=== PATIENT | male | born 1960 | race African-American/Black ===

== ENCOUNTER 2016-07-31 14:39 | Day surgery (SDC) | payer OTHER ==
[2016-07-30 13:39] VITALS: BMI 23.5
[2016-07-31 16:18] LABS: INR 0.95 (0.82-1.09); PROTHROMBIN TIME (PATIENT) 10.4 SEC (9.98-11.88)
--- NOTE | 2016-08-01 11:40 | EKG ---
Test Reason : Blood Pressure : / mmHG Vent. Rate : 072 BPM Atrial Rate : 072 BPM P-R Int : 214 ms QRS Dur : 092 ms QT Int : 406 ms P-R-T Axes : 078 006 096 degrees QTc Int : 444 ms POOR DATA QUALITY, INTERPRETATION MAY BE ADVERSELY AFFECTED SINUS RHYTHM WITH 1ST DEGREE A-V BLOCK VOLTAGE CRITERIA FOR LEFT VENTRICULAR HYPERTROPHY CANNOT RULE OUT SEPTAL INFARCT , AGE UNDETERMINED ABNORMAL ECG NO PREVIOUS ECGS AVAILABLE Confirmed by BEKA KELLY MD ([id number]) on 08/01/2016 11:39:35 AM Referred By: Santosh Singh Confirmed By:BEKA KELLY MD
== END 2016-07-31 16:14 ==
LOC: JASU-SURG 14:39
PROVIDERS: ATTEND Surgery
PROC: 8E0KXY7 Examination of Musculoskeletal System (ICD-10-PCS; principal; 2016-07-31)
DX: Z53.8 Procedure and treatment not carried out for other reasons (principal)
CPT/HCPCS: 36415; 84132; 85610; 85730; 93005; 93010; J1644

== ENCOUNTER 2016-08-05 11:25 | Day surgery (SDC) | payer OTHER ==
[2016-08-02 13:22] VITALS: BMI 23.5
[2016-08-05] MEDS ORDERED: HEPARIN NA (PORCINE) 5,000 UNITS/ML 1ML VIAL ONE ×3 (13:41→17:28)
[2016-08-05] MEDS ORDERED: LIDOCAINE HCL 1%, 10 MG/ML (20ML VIAL) ONE (13:42)
--- NOTE | 2016-08-05 14:23 | HP ---
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 History Source: Family Member, Medical Record Limitations to Obtaining History: Dementia - Past Medical History RECORDS SUPERVISOR: Yes: CVA Cardiovascular: Yes: HTN Pulmonary: Yes: COPD Renal/: Yes: Renal Failure - Past Surgical History Past Surgical History: Yes: AV Fistula/Graft - Advance Directives Advance Directives: Yes: Health Care Proxy - Smoking History Smoking history: Never smoked - Alcohol/Substance Use Hx Alcohol Use: No Home Medications - Allergies Allergies/Adverse Reactions: Allergies Allergy/AdvReac Type Severity Reaction Status Date / Time codeine Allergy Verified 08/05/16 12:16 - Home Medications Home Medications: Ambulatory Orders Acetaminophen 325 mg PO PRN PRN 07/30/16 Albuterol 0.083% Nebulizer Bertha [Ventolin 0.083% Nebulizer Soln -] 1 neb NEB Q6H PRN 07/30/16 Brimonidine Tartrate/Timolol [Combigan Eye Drops] 5 ml AU BID 07/30/16 Enalapril Maleate 5 mg PO DAILY 07/30/16 Magnesium Hydroxide [Milk of Magnesia] 400 mg PO PRN PRN 07/30/16 Pantoprazole Sodium 40 mg PO DAILY 07/30/16 Sevelamer Carbonate [Renvela] 1,600 mg PO CM 07/30/16 Amlodipine Besylate 10 mg PO DAILY 07/31/16 Docusate Sodium 100 mg PO BID 07/31/16 Dorzolamide HCl [Trusopt 2%] 1 drop OD BID 07/31/16 Ferrous Sulfate [Feosol] 325 mg PO DAILY 07/31/16 Isosorbide Dinitrate [Isordil -] 10 mg PO DAILY 07/31/16 Latanoprost 0.005% Eye Drops [Xalatan 0.005% Eye Drops -] 1 drop OD DAILY Metoprolol Tartrate 50 mg PO BID 07/31/16 Pantoprazole Sodium 40 mg PO DAILY 07/31/16 Sodium Chloride [Tom-128] 2 drop OS Q6H 07/31/16 Physical Examination Vital Signs: Vital Signs Temperature 97.8 F 08/05/16 12:22 Pulse Rate 69 08/05/16 12:22 Respiratory Rate 18 08/05/16 12:22 Blood Pressure 158/93 03/20/17 12:22 O2 Sat by Pulse Oximetry (%) 100 08/05/16 12:22 Constitutional: Yes: Calm Eyes: Yes: EOM Intact Neck: Yes: Supple Cardiovascular: Yes: Regular Rate and Rhythm Respiratory: Yes: Regular Gastrointestinal: Yes: Normal Bowel Sounds, Soft Extremities: Yes: Other (Left upper arm fistula with 2 aneurysms 3-4 cm. Skin over fistula is thin and beginning to ulcerate.) Labs: CBC, BMP 08/05/16 11:35 Problem List - Problems (1) Complication of vascular access for dialysis Assessment/Plan: Aneurysmal fistula with skin changes. Plan interposition graft. Code(s): T82.9XXA - UNSP COMP OF CARDIAC AND VASCULAR PROSTH DEV/GRFT, INIT Qualifiers: Encounter type: subsequent encounter Qualified Code(s): T82.9XXD - Unspecified complication of cardiac and vascular prosthetic device, implant and graft, subsequent encounter
[2016-08-05] MEDS ORDERED: MIDAZOLAM HCL 2 MG/2 ML SINGLE DOSE VIAL ONE ×3 (14:24→17:25)
[2016-08-05] MEDS ORDERED: ceFAZolin SODIUM 1 GM VIAL ONE (14:34)
[2016-08-05] MEDS ORDERED: SODIUM CHLORIDE 0.9% P/F 10 ML VIAL IJ ONE (14:34)
[2016-08-05] MEDS ORDERED: hydrALAZINE HCL 20 MG/ML VIAL ONE (14:40)
[2016-08-05] MEDS ORDERED: LIDOCAINE HCL 1%, 10 MG/ML (20ML VIAL) IJ ONE ×2 (14:52)
[2016-08-05] MEDS ORDERED: ONDANSETRON 4 MG/2 ML VIAL IVPUSH PRN ×2 (16:16→19:25)
[2016-08-05] MEDS ORDERED: PROMETHAZINE HCL 25 MG/1 ML VIAL IVPUSH PRN ×2 (16:16→19:25)
[2016-08-05] MEDS ORDERED: LACTATED RINGERS SOLUTION 1,000 ML IV SCH ×2 (16:30→19:25)
[2016-08-05] MEDS ORDERED: ALBUTEROL SO4 0.083% IH SOL 2.5 MG/3 ML VIAL.NEB. NEB PRN ×2 (18:31→19:25)
[2016-08-05] MEDS ORDERED: PATIENT'S OWN MEDICATION (NON-FORMULARY) (Acetaminophen [Acetaminophen] 325 MG) PO PRN (18:31)
[2016-08-05] MEDS ORDERED: MAGNESIUM HYDROX 2400MG/30ML ORAL SUSPENSION 30 ML CUP PO PRN ×2 (18:31→19:25)
--- NOTE | 2016-08-05 18:33 | OP ---
Operative Note - Note: Operative Date: 08/05/16 Pre-Operative Diagnosis: Aneurysm of AV fistula left arm. ESRD on HD Operation: Repair of left brachial artery aneurysm with patch angioplasty, ligation of AV fistula. Placement Permacath. Findings: Left brachial artery fistula with inflow PTFE graft. Post-Operative Diagnosis: Other (Brachial artery aneurysm.) Surgeon: Santosh Singh Ply Cutter: Ivelisse Palafox Anesthesiologist/HAND MODEL: Gabriel Hanna Anesthesia: Fractional Specimens Removed: Aneurysm brachial artery Estimated Blood Loss (mls): 600
[2016-08-05] MEDS ORDERED: [UNRECOGNIZED DRUG - OTHER] OS SCH (18:45)
[2016-08-05] MEDS ORDERED: SEVELAMER CARBONATE 800 MG TAB (FP) PO SCH ×2 (18:45→19:25)
[2016-08-05] MEDS ORDERED: SODIUM CHLORIDE OS SCH (18:45)
--- NOTE | 2016-08-05 18:53 | CONSULT ---
Consult Consult Specialty:: Nephrology Reason for Consultation:: ESRD on HD - History of Present Illness Chief Complaint: fistula malfunction History of Present Illness: Pt is a 56 year old male with Hx of ESRD, HTN and schizophrenia who was sent in for fistula repair. He had a permacath placed. He is on TTS HD schedule. He was found to be hyperkalemic. He is now awake. He denies shortness of breath. He denies palpitations. He is currently in the recovery room. - History Source History Provided By: Patient, Medical Record - Past Medical History COMMUNITY HEALTH NAVIGATOR: Yes: CVA Cardio/Vascular: Yes: HTN Pulmonary: Yes: COPD Gastrointestinal: Yes: GERD Renal/: Yes: Renal Failure, Hemodialysis - Past Surgical History Past Surgical History: Yes: AV Fistula/Graft - Alcohol/Substance Use Hx Alcohol Use: No - Smoking History Smoking history: Never smoked Home Medications - Allergies Allergies/Adverse Reactions: Allergies Allergy/AdvReac Type Severity Reaction Status Date / Time codeine Allergy Verified 08/05/16 12:16 - Home Medications Home Medications: Ambulatory Orders Acetaminophen 325 mg PO PRN PRN 07/30/16 Albuterol 0.083% Nebulizer Bertha [Ventolin 0.083% Nebulizer Soln -] 1 neb NEB Q6H PRN 07/30/16 Brimonidine Tartrate/Timolol [Combigan Eye Drops] 5 ml AU BID 07/30/16 Enalapril Maleate 5 mg PO DAILY 07/30/16 Magnesium Hydroxide [Milk of Magnesia] 400 mg PO PRN PRN 07/30/16 Pantoprazole Sodium 40 mg PO DAILY 07/30/16 Sevelamer Carbonate [Renvela] 1,600 mg PO CM 07/30/16 Amlodipine Besylate 10 mg PO DAILY 07/31/16 Docusate Sodium 100 mg PO BID 07/31/16 Dorzolamide HCl [Trusopt 2%] 1 drop OD BID 07/31/16 Ferrous Sulfate [Feosol] 325 mg PO DAILY 07/31/16 Isosorbide Dinitrate [Isordil -] 10 mg PO DAILY 07/31/16 Latanoprost 0.005% Eye Drops [Xalatan 0.005% Eye Drops -] 1 drop OD DAILY Metoprolol Tartrate 50 mg PO BID 07/31/16 Pantoprazole Sodium 40 mg PO DAILY 07/31/16 Sodium Chloride [Tom-128] 2 drop OS Q6H 07/31/16 Family Disease History - Family Disease History Family History: Denies Review of Systems - Review of Systems Constitutional: reports: No Symptoms HENT: reports: No Symptoms Neck: reports: No Symptoms Cardiovascular: reports: No Symptoms Respiratory: reports: No Symptoms Gastrointestinal: reports: No Symptoms Genitourinary: reports: No Symptoms Musculoskeletal: reports: No Symptoms Integumentary: reports: No Symptoms Neurological: reports: No Symptoms Physical Exam Vital Signs: Vital Signs Temperature 97.8 F 08/05/16 12:22 Pulse Rate 69 08/05/16 12:22 Respiratory Rate 18 08/05/16 12:22 Blood Pressure 158/93 08/05/16 12:22 O2 Sat by Pulse Oximetry (%) 100 08/05/16 12:22 Constitutional: Yes: Calm HENT: Yes: Atraumatic Cardiovascular: Yes: S1, S2 Respiratory: Yes: CTA Bilaterally Gastrointestinal: Yes: Normal Bowel Sounds, Soft Renal/: Yes: WNL Musculoskeletal: Yes: WNL Edema: No Neurological: Yes: Oriented Labs: Laboratory Tests 07/31/16 08/05/16 08/05/16 15:40 11:35 13:04 WBC RBC Hgb Hct Sodium Potassium 6.0 H 6.3 H* Chloride Carbon Dioxide Anion Gap BUN Creatinine POC Glucometer 52 Random Glucose Calcium 08/05/16 08/05/16 17:49 17:49 WBC Pending RBC Pending Hgb Pending Hct Pending Sodium Pending Potassium Pending Chloride Pending Carbon Dioxide Pending Anion Gap Pending BUN Pending Creatinine Pending POC Glucometer Random Glucose Pending Calcium Pending Imaging - Results Chest X-ray: Image Reviewed Problem List - Problems (1) Complication of vascular access for dialysis Code(s): T82.9XXA - UNSP COMP OF CARDIAC AND VASCULAR PROSTH DEV/GRFT, INIT Qualifiers: Encounter type: subsequent encounter Qualified Code(s): T82.9XXD - Unspecified complication of cardiac and vascular prosthetic device, implant and graft, subsequent encounter (2) ESRD (end stage renal disease) Code(s): N18.6 - END STAGE RENAL DISEASE (3) Hypertension Code(s): I10 - ESSENTIAL (PRIMARY) HYPERTENSION (4) Brain metastases Code(s): C79.31 - SECONDARY MALIGNANT NEOPLASM OF BRAIN Assessment/Plan Current Medications Generic Name Dose Route Start Last Admin Trade Name Freq PRN Reason Stop Dose Admin Albuterol Sulfate amp 08/05/16 18:31 Ventolin 0.083% Nebulizer Soln - NEB Q6H PRN SHORTNESS OF BREATH Amlodipine Besylate 10 mg 08/06/16 10:00 Norvasc - PO DAILY [facility] Docusate Sodium 100 mg 08/05/16 22:00 Colace - PO BID [facility] Dorzolamide HCl 1 drop 08/05/16 22:00 Trusopt 2% OD BID [facility] Enalapril Maleate 5 mg 08/06/16 10:00 Vasotec - PO DAILY [facility] Fentanyl 50 mcg 08/05/16 16:16 Sublimaze Injection - IVPUSH 08/08/16 16:17 [id number] PRN PAIN Lactated Ringer's 1,000 mls @ 125 mls/hr 08/05/16 16:30 Lactated Ringers Solution IV ASDIR [facility] Isosorbide Dinitrate 10 mg 08/06/16 10:00 Isordil - PO DAILY [facility] Latanoprost 1 drop 08/06/16 10:00 Xalatan 0.005% Eye Drops - OD DAILY [facility] Magnesium Hydroxide ml 08/05/16 18:31 Milk Of Magnesia - PO PRN PRN CONSTIPATION Metoprolol Tartrate 50 mg 08/05/16 22:00 Lopressor - PO BID [facility] Non-Formulary Medication 325 mg 08/05/16 18:31 Acetaminophen [Acetaminophen] PO PRN PRN PAIN Non-Formulary Medication 5 ml 08/05/16 22:00 Brimonidine Tartrate/Timolol [Combigan 0.2%-0.5% Eye Drops] AU BID [facility] Non-Formulary Medication 325 mg 08/06/16 10:00 Ferrous Sulfate [Feosol] PO DAILY [facility] Non-Formulary Medication 2 drop 08/05/16 18:45 Sodium Chloride [Tom-128] OS Q6H [facility] Ondansetron HCl 4 mg 08/05/16 16:16 Zofran Injection IVPUSH 08/05/16 22:17 Q6H PRN NAUSEA AND/OR VOMITING Pantoprazole Sodium 40 mg 08/06/16 10:00 Protonix - PO DAILY [facility] Promethazine HCl 12.5 mg 08/05/16 16:16 Phenergan Injection - IVPUSH 08/05/16 22:17 Q6H PRN [facility] Sevelamer Carbonate 1,600 mg 08/05/16 18:45 Renvela - PO CM [facility] Impression 1. ESRD 2. access malfunction 3. HTN 4. brain metastases 5. schizophrenia 6. anemia 7. hyperkalemia Plan - follow up repeat labs - will arrange for HD today - repeat labs in am - will likely dialyze again in am - monitor hg - resume home meds Dr Feng
[2016-08-05] MEDS ORDERED: EPOETIN ALFA 2,000 UNITS/1 ML VIAL IVPUSH ONE (18:55)
[2016-08-05] MEDS ORDERED: ACETAMINOPHEN 325 MG TABLET (FP) PO PRN (19:25)
[2016-08-05 19:38] LABS: CALCIUM 8.7 mg/dL (8.5-10.1)
[2016-08-05 19:42] LABS: CREATININE 11.9 mg/dL (0.7-1.3)
[2016-08-05 20:08] LABS: MCH 28.8 pg (25.7-33.7); MCHC 32.1 g/dl (32.0-35.9); MEAN CELL VOLUME 89.6 fl (80-96); MEAN PLT VOLUME 8.2 fl (7.5-11.1); PLATELET COUNT 176 K/MM3 (134-434); RDW 13.6 % (11.9-15.9); WHITE BLOOD COUNT 5.6 K/mm3 (4.0-10.0)
[2016-08-05] MEDS ORDERED: HYDROmorphone HCL CARPU-JECT 1 MG/1 ML DISP.SYRIN IVPB PRN (21:30)
[2016-08-05] MEDS ORDERED: DOCUSATE SODIUM 100 MG CAPSULE (FP) PO SCH (22:00)
[2016-08-05] MEDS ORDERED: DORZOLAMIDE 2% HCL OPHTHALMIC SOLUTION 10 ML BOTTLE OD SCH ×2 (22:00)
[2016-08-05] MEDS: DOCUSATE SODIUM 100 MG CAPSULE (FP) PO SCH (22:00)
[2016-08-05] MEDS ORDERED: METOPROLOL TARTRATE 50 MG TABLET (FP) PO SCH (22:00)
[2016-08-05] MEDS: METOPROLOL TARTRATE 50 MG TABLET (FP) PO SCH (22:00)
[2016-08-05] MEDS ORDERED: PATIENT'S OWN MEDICATION (NON-FORMULARY) (Brimonidine Tartrate/Timolol [Combigan 0.2%-0.5% AU SCH ×2 (22:00)
[2016-08-06] MEDS ORDERED: [UNRECOGNIZED DRUG - OTHER] OS SCH (00:45)
[2016-08-06] MEDS ORDERED: SODIUM CHLORIDE OS SCH (00:45)
[2016-08-06 07:47] LABS: CALCIUM 8.8 mg/dL (8.5-10.1)
--- NOTE | 2016-08-06 08:03 | PN ---
Progress Note, Physician Chief Complaint: Pt. pain controlled, no GA complaints. - Current Medication List Current Medications: Active Medications Acetaminophen (Tylenol -) 325 mg PO Q6H PRN PRN Reason: PAIN Albuterol Sulfate (Ventolin 0.083% Nebulizer Soln -) 1 amp NEB Q6H PRN PRN Reason: SHORTNESS OF BREATH Amlodipine Besylate (Norvasc -) 10 mg PO DAILY [facility] Docusate Sodium (Colace -) 100 mg PO BID [facility] Last Admin: 08/05/16 22:00 Dose: Not Given Dorzolamide HCl (Trusopt 2%) 1 drop OD BID [facility] Enalapril Maleate (Vasotec -) 5 mg PO DAILY [facility] Ferrous Sulfate (Feosol -) 325 mg PO DAILY [facility] Hydromorphone HCl (Dilaudid Injection -) 0.5 mg IVPB Q4H PRN PRN Reason: PAIN Lactated Ringer's (Lactated Ringers Solution) 1,000 mls @ 125 mls/hr IV ASDIR [facility] Isosorbide Dinitrate (Isordil -) 10 mg PO DAILY [facility] Latanoprost (Xalatan 0.005% Eye Drops -) 1 drop OD DAILY [facility] Magnesium Hydroxide (Milk Of Magnesia -) 30 ml PO DAILY PRN PRN Reason: CONSTIPATION Metoprolol Tartrate (Lopressor -) 50 mg PO BID [facility] Last Admin: 08/05/16 22:00 Dose: Not Given Non-Formulary Medication (Brimonidine Tartrate/Timolol [Combigan 0.2%-0.5% Eye Drops]) 5 ml AU BID [facility] Non-Formulary Medication (Sodium Chloride [Tom-128]) 2 drop OS Q6H [facility] Pantoprazole Sodium (Protonix -) 40 mg PO DAILY [facility] Sevelamer Carbonate (Renvela -) 1,600 mg PO [facility] - Objective Vital Signs: Vital Signs Temperature 98 F 08/06/16 05:36 Pulse Rate 84 08/06/16 05:36 Respiratory Rate 18 08/06/16 05:36 Blood Pressure 128/77 08/06/16 05:36 O2 Sat by Pulse Oximetry (%) 99 08/05/16 20:45 Constitutional: Yes: Well Nourished, No Distress, Calm Musculoskeletal: Yes: WNL Wound/Incision: Yes: Clean/Dry Neurological: Yes: WNL, Alert, Oriented ...Motor Strength: WNL Labs: CBC, BMP 08/05/16 17:49 Assessment/Plan POD#1 s/p AV fistula, repair of brachial artery and placement of permacath. Doing well. D/C from anesthesia care.
--- NOTE | 2016-08-06 08:57 | PN ---
[id number] via his left permacath today. Vital Signs Period Temp Pulse Resp BP Sys/[place] Pulse Ox Last 24 Hr 97.2 F-98 F 62-87 10-18 97-158/51-99 94-100 POC:101 PE: GEN: RRR Lungs: CTA b/l Abd: soft, on-distended, non-tender LUE: +2 radial pulse. mobile application architect strength equal b/l. Dressing to mid arm and permcath c/d/i LE: scd in place. CBC, BMP 08/05/16 17:49 08/06/16 05:35 A/P: s/p Repair of left brachial artery aneurysm with patch angioplasty, ligation of AV fistula. Placement Permacath Awaiting call from Nephrology, pt may have another HD session prior to discharge back to nursing facility. diet ordered for this am cont all oral medications <Ivelisse Palafox - Last Filed: 08/06/16 09:07> - Note Progress Note: Wounds clean and dry Left hand warm Pulse intact Permacath tip in RA but due to anatomy arterial port does not aspirate blood. It flows easily and venogram showed no obstruction. Plan to use permacath with reversed ports for now. I will schedule for new AV access in right arm as soon as possible. <Santosh Singh - Last Filed: 08/06/16 09:13> Problem List - Problems (1) Complication of vascular access for dialysis Code(s): T82.9XXA - UNSP COMP OF CARDIAC AND VASCULAR PROSTH DEV/GRFT, INIT Qualifiers: Encounter type: subsequent encounter Qualified Code(s): T82.9XXD - Unspecified complication of cardiac and vascular prosthetic device, implant and graft, subsequent encounter <Santosh Singh - Last Filed: 08/06/16 09:13>
--- NOTE | 2016-08-06 08:57 | SURG ---
Surgery Offset Pressman Note Offset Pressman: Ivelisse Palafox PA-C Date of Service: 08/05/16 Diagnosis: Aneurysm of AV fistula left arm. ESRD on HD Procedure: Repair of left brachial artery aneurysm with patch angioplasty, ligation of AV fistula. Placement Permacath I was present for the entirety of the operative procedure. For further detail, please refer to operative report. Visit type - Case Type Case Type: Scheduled Admission - Emergency Emergency Visit: No - New patient This patient is new to me today: Yes Date on this admission: 08/06/16 - Critical Care Critical Care patient: No
[2016-08-06] MEDS ORDERED: PT OWN MED DRAWER 7, Y5N ONE (09:05)
[2016-08-06 09:32] LABS: CREATININE 9.8 mg/dL (0.7-1.3)
--- NOTE | 2016-08-06 09:48 | PN ---
Progress Note (short form) - Note Progress Note: Chief Complaint: Events noted, notes reviewed, post operative observation, post repair of left brachial artery aneurysm with patch angioplasty, ligation of AV fistula and placement of a Permacath History of Present Illness: Seen and examined on telemetry. Events noted, notes reviewed, post operative observation, post repair of left brachial artery aneurysm with patch angioplasty , ligation of AV fistula and placement of a Permacath Full consult dictated - Current Medication List Current Medications Acetaminophen (Tylenol -) 325 mg PO Q6H PRN PRN Reason: PAIN Albuterol Sulfate (Ventolin 0.083% Nebulizer Soln -) 1 amp NEB Q6H PRN PRN Reason: SHORTNESS OF BREATH Amlodipine Besylate (Norvasc -) 10 mg PO DAILY [facility] Docusate Sodium (Colace -) 100 mg PO BID [facility] Last Admin: 08/05/16 22:00 Dose: Not Given Dorzolamide HCl (Trusopt 2%) 1 drop OD BID [facility] Enalapril Maleate (Vasotec -) 5 mg PO DAILY [facility] Ferrous Sulfate (Feosol -) 325 mg PO DAILY [facility] Hydromorphone HCl (Dilaudid Injection -) 0.5 mg IVPB Q4H PRN PRN Reason: PAIN Isosorbide Dinitrate (Isordil -) 10 mg PO DAILY [facility] Latanoprost (Xalatan 0.005% Eye Drops -) 1 drop OD DAILY [facility] Magnesium Hydroxide (Milk Of Magnesia -) 30 ml PO DAILY PRN PRN Reason: CONSTIPATION Metoprolol Tartrate (Lopressor -) 50 mg PO BID [facility] Last Admin: 08/05/16 22:00 Dose: Not Given Non-Formulary Medication (Brimonidine Tartrate/Timolol [Combigan 0.2%-0.5% Eye Drops]) 5 ml AU BID [facility] Non-Formulary Medication (Sodium Chloride [Tom-128]) 2 drop OS Q6H [facility] Pantoprazole Sodium (Protonix -) 40 mg PO DAILY [facility] Sevelamer Carbonate (Renvela -) 1,600 mg PO CM [facility] Review of Systems Cardiovascular: As noted above Respiratory: denies: denies: Cough or Sputum Production Gastrointestinal: denies: Nausea, Vomiting, Diarrhea, Constipation or Abdominal Discomfort Musculoskeletal: No Symptoms Reported Endocrine: No Symptoms Reported - Objective Vital Signs: Last Vital Signs Temp Pulse Resp BP Pulse Ox 98 F 84 18 128/77 99 08/06/16 05:36 08/06/16 05:36 08/06/16 05:36 08/06/16 05:36 08/05/16 20:45 Neck: Supple Negative JVD No Bruit Cardiovascular: S1 S2 Regular Rate and Rhythm Respiratory: Clear to A&P Bilaterally Gastrointestinal: Soft Benign Normal Bowel Sounds Ext: No Edema Labs: CBC, BMP 08/05/16 17:49 08/06/16 05:35 Assessment/Plan ASSESSMENT: 1. Post operative observation, post repair of left brachial artery aneurysm with patch angioplasty, ligation of AV fistula and placement of a Permacath 2. CAD angina pectoris 3. Diastolic LV dysfunction with class I NYHA classification LV failure, compensated 4. HTN 5. DM 6. Hyperlipidemia 7. ESRD on HD 8. History of malignancy of the adrenal gland 9. History of bipolar disorder 10. History of schizophrenia PLAN: 1. Continue Lopressor 2. Continue Norvasc 3. Continue Vasotec 4. Continue Nitrates but switch to Imdur 5. Initiate Lipitor 6. Add ASA unless it is contraindicated 7. Can be D/C from cardiovascular point of view and F/U with own director of integrated marketing Britt Clay MD
[2016-08-06] MEDS ORDERED: ISOSORBIDE DINITRATE 10 MG TABLET (FP) PO SCH (10:00)
[2016-08-06] MEDS ORDERED: LATANOPROST 0.005% OPHTH SOLN 2.5ML BOTTLE OD SCH ×2 (10:00)
[2016-08-06] MEDS ORDERED: amLODIPine BESYLATE 10 MG TABLET (FP) PO SCH ×2 (10:00)
[2016-08-06] MEDS ORDERED: FERROUS SO4 325 MG TABLET (FP) PO SCH ×2 (10:00)
[2016-08-06] MEDS ORDERED: ENALAPRIL MALEATE 5 MG TABLET (FP) PO SCH ×2 (10:00)
[2016-08-06] MEDS ORDERED: ISOSORBIDE DINITRATE 5 MG TABLET PO SCH (10:00)
[2016-08-06] MEDS ORDERED: PANTOPRAZOLE 40 MG TABLET (FP) PO SCH ×2 (10:00)
[2016-08-06 10:35] VITALS: TEMP 97.8
[2016-08-06 12:49] VITALS: BP 133/74; PULSE 84
[2016-08-06] MEDS: METOPROLOL TARTRATE 50 MG TABLET (FP) PO SCH (13:16)
[2016-08-06] MEDS: DOCUSATE SODIUM 100 MG CAPSULE (FP) PO SCH (13:16)
--- NOTE | 2016-08-06 13:25 | PN ---
Progress Note, Physician History of Present Illness: Pt seen and examined at bedside. He became agitated after a little over 2 hours on HD and wanted to stop. He is awake and alert. He denies shortness of breath. - Current Medication List Current Medications: Active Medications Acetaminophen (Tylenol -) 325 mg PO Q6H PRN PRN Reason: PAIN Albuterol Sulfate (Ventolin 0.083% Nebulizer Soln -) 1 amp NEB Q6H PRN PRN Reason: SHORTNESS OF BREATH Amlodipine Besylate (Norvasc -) 10 mg PO DAILY [facility] Last Admin: 08/06/16 13:17 Dose: 10 mg Docusate Sodium (Colace -) 100 mg PO BID [facility] Last Admin: 08/06/16 13:16 Dose: 100 mg Dorzolamide HCl (Trusopt 2%) 1 drop OD BID [facility] Enalapril Maleate (Vasotec -) 5 mg PO DAILY [facility] Last Admin: 08/06/16 13:17 Dose: 5 mg Ferrous Sulfate (Feosol -) 325 mg PO DAILY [facility] Last Admin: 08/06/16 13:16 Dose: 325 mg Hydromorphone HCl (Dilaudid Injection -) 0.5 mg IVPB Q4H PRN PRN Reason: PAIN Isosorbide Mononitrate (Imdur -) 30 mg PO DAILY [facility] Latanoprost (Xalatan 0.005% Eye Drops -) 1 drop OD DAILY [facility] Magnesium Hydroxide (Milk Of Magnesia -) 30 ml PO DAILY PRN PRN Reason: CONSTIPATION Metoprolol Tartrate (Lopressor -) 50 mg PO BID [facility] Last Admin: 08/06/16 13:16 Dose: 50 mg Non-Formulary Medication (Brimonidine Tartrate/Timolol [Combigan 0.2%-0.5% Eye Drops]) 5 ml AU BID [facility] Non-Formulary Medication (Sodium Chloride [Tom-128]) 2 drop OS Q6H [facility] Pantoprazole Sodium (Protonix -) 40 mg PO DAILY [facility] Last Admin: 08/06/16 13:16 Dose: 40 mg Sevelamer Carbonate (Renvela -) 1,600 mg PO CM [facility] - Objective Vital Signs: Vital Signs Temperature 97.8 F 08/06/16 10:25 Pulse Rate 84 08/06/16 12:48 Respiratory Rate 18 08/06/16 12:48 Blood Pressure 133/74 08/06/16 12:48 O2 Sat by Pulse Oximetry (%) 99 08/05/16 20:45 Constitutional: Yes: Calm HENT: Yes: Atraumatic Cardiovascular: Yes: S1, S2 Respiratory: Yes: CTA Bilaterally Gastrointestinal: Yes: Soft Genitourinary: Yes: WNL Musculoskeletal: Yes: WNL Edema: No Integumentary: Yes: Venous Stasis Changes Neurological: Yes: Oriented Psychiatric: Yes: Oriented Labs: CBC, BMP 08/05/16 17:49 08/06/16 05:35 Problem List - Problems (1) Complication of vascular access for dialysis Code(s): T82.9XXA - UNSP COMP OF CARDIAC AND VASCULAR PROSTH DEV/GRFT, INIT Qualifiers: Encounter type: subsequent encounter Qualified Code(s): T82.9XXD - Unspecified complication of cardiac and vascular prosthetic device, implant and graft, subsequent encounter (2) ESRD (end stage renal disease) Code(s): N18.6 - END STAGE RENAL DISEASE (3) Hypertension Code(s): I10 - ESSENTIAL (PRIMARY) HYPERTENSION (4) Brain metastases Code(s): C79.31 - SECONDARY MALIGNANT NEOPLASM OF BRAIN Assessment/Plan Current Medications Generic Name Dose Route Start Last Admin Trade Name Freq PRN Reason Stop Dose Admin Acetaminophen 325 mg 08/05/16 19:25 Tylenol - PO Q6H PRN PAIN Albuterol Sulfate 1 amp 08/05/16 19:25 Ventolin 0.083% Nebulizer Soln - NEB Q6H PRN SHORTNESS OF BREATH Amlodipine Besylate 10 mg 08/06/16 10:00 08/06/16 13:17 Norvasc - PO 10 mg DAILY [facility] Administration Docusate Sodium 100 mg 08/05/16 22:00 08/06/16 13:16 Colace - PO 100 mg BID [facility] Administration Dorzolamide HCl 1 drop 08/05/16 22:00 Trusopt 2% OD BID [facility] Enalapril Maleate 5 mg 08/06/16 10:00 08/06/16 13:17 Vasotec - PO 5 mg DAILY [facility] Administration Ferrous Sulfate 325 mg 08/06/16 10:00 08/06/16 13:16 Feosol - PO 325 mg DAILY [facility] Administration Hydromorphone HCl 0.5 mg 08/05/16 21:30 Dilaudid Injection - IVPB Q4H PRN PAIN Isosorbide Mononitrate 30 mg 08/07/16 10:00 Imdur - PO DAILY [facility] Latanoprost 1 drop 08/06/16 10:00 Xalatan 0.005% Eye Drops - OD DAILY [facility] Magnesium Hydroxide 30 ml 08/05/16 19:25 Milk Of Magnesia - PO DAILY PRN CONSTIPATION Metoprolol Tartrate 50 mg 08/05/16 22:00 08/06/16 13:16 Lopressor - PO 50 mg BID [facility] Administration Non-Formulary Medication 5 ml 08/05/16 22:00 Brimonidine Tartrate/Timolol [Combigan 0.2%-0.5% Eye Drops] AU BID [facility] Non-Formulary Medication 2 drop 08/06/16 00:45 Sodium Chloride [Tom-128] OS Q6H [facility] Pantoprazole Sodium 40 mg 08/06/16 10:00 08/06/16 13:16 Protonix - PO 40 mg DAILY [facility] Administration Sevelamer Carbonate 1,600 mg 08/05/16 19:25 Renvela - PO CM [facility] Impression 1. ESRD 2. access malfunction 3. HTN 4. brain metastases 5. schizophrenia 6. anemia 7. hyperkalemia Plan - pt tolerated HD last night, he was dialyzed for about 2 hours - dialyzed again today to get pt back on schedule and to treat hyperkalemia - pt has HD scheduled on at [facility] - cardio input appreciated, pt to follow with outpt sports management internship, this was explained to pt - resume home meds Dr Feng
--- NOTE | 2016-08-06 15:40 | CONS ---
DATE OF CONSULTATION: 08/06/2016 REQUESTING PHYSICIAN: Santosh Singh M.D. CHIEF COMPLAINT: Postprocedure cardiovascular evaluation in a patient with known history of coronary artery disease, angina pectoris. INFORMANT: History was obtained from the patient, from his medical records. HISTORY OF PRESENT ILLNESS: A 56-year-old male of -[place] descent with known history of coronary artery disease, angina pectoris, diastolic left ventricular dysfunction with chronic class I, [place] [employer] classification left ventricular failure, hypertensive cardiovascular disease, diabetes mellitus, hypercholesterolemia, end-stage renal disease on hemodialysis, history of adrenal gland malignancy, bipolar disorder, schizophrenia, who was admitted to [facility] for elective vascular procedure for management of left arm AV fistula aneurysmal dilatation. Postoperatively, observation was recommended post repair of left brachial artery aneurysm with patch angioplasty and ligation of AV fistula and in addition placement of a PermCath. Patient currently denies any chest discomfort. Patient denies any dyspnea, orthopnea, paroxysmal nocturnal dyspnea, or peripheral edema. Patient denies any palpitation, dizziness, lightheadedness, or syncope. Preprocedure cardiovascular evaluation was performed at which point echocardiography was performed June 19, 2016, which revealed concentric left ventricular hypertrophy with normal left ventricular systolic function, trace mitral valve regurgitation and mild tricuspid valve regurgitation with moderate degree of pulmonary hypertension, RVSP of 47 mmHg. PAST MEDICAL HISTORY: Coronary artery disease, angina pectoris, diastolic left ventricular dysfunction with chronic class I [place] [employer] classification, left ventricular failure, hypertensive cardiovascular disease, diabetes mellitus, hypercholesterolemia, end-stage renal disease on hemodialysis, adrenal gland malignancy, bipolar disorder, schizophrenia. SOCIAL HISTORY: Patient resides at an extended care facility. FAMILY HISTORY: No history of coronary artery disease. ALLERGIES: CODEINE. MEDICAL THERAPY: Currently include acetaminophen 325 mg every 6 hours as needed, Ventolin nebulizer every 6 hours as needed, Norvasc 10 mg once a day, Colace 100 mg twice a day, Trusopt eyedrops as prescribed, Vasotec 5 mg once a day, ferrous sulfate 325 mg once a day, Dilaudid injection 0.5 mg every 4 hours as needed, Isordil 10 mg once a day, Xalatan eyedrops as prescribed, Milk of Magnesia 30 mL daily as needed, Lopressor 50 mg twice a day, Combigan eyedrops as prescribed, Protonix 40 mg once a day, Renvela 1600 mg once daily. REVIEW OF SYSTEMS: Head and neck: Denies headache, photophobia, blurring of vision. Respiratory: No cough, sputum production. Cardiovascular: As noted above. Gastrointestinal: Denies nausea, vomiting, diarrhea, abdominal discomfort. Genitourinary: On hemodialysis. Musculoskeletal: No symptoms reported. PHYSICAL EXAMINATION: Vital signs: Blood pressure 128/77 mmHg, pulse rate is 84 beats per minute. Head/Neck: Pupils equal, reactive to light and accommodation. Extraocular muscles intact. Anicteric sclerae. Negative JVD. No bruit appreciated. Chest: Clear to auscultation, percussion. Cardiovascular: S1, S2. Regular rate, 1/6 systolic ejection murmur. No clicks or gallops. Abdomen: Soft, benign. Normoactive bowel sounds. Extremity: Chronic venous stasis changes were noted . 1+ distal pulses. No calf tenderness. Electrocardiogram reveals sinus rhythm with 1st-degree AV block left axis deviation with R wave depression, nonspecific T wave abnormality. Echocardiography as noted above. CBC revealed white cell count 5.6, hemoglobin 12.1, platelets 176. Basic metabolic profile revealed a sodium of 141, potassium 5.4, BUN 49, creatinine 5.8, glucose 97. ASSESSMENT: 1. Postoperative observation post repair of left brachial artery aneurysm with patch angioplasty and ligation of arteriovenous fistula with placement of a PermCath. 2. Coronary artery disease, angina pectoris, stable. 3. Diastolic left ventricular dysfunction with chronic class I [place] [employer] classification left ventricular failure, compensated. 4. Hypertensive cardiovascular disease. 5. Diabetes mellitus. 6. Hypercholesterolemia. 7. End-stage renal disease on hemodialysis. 8. History of malignancy of adrenal gland. 9. History of bipolar disorder. 10. History of schizophrenia. PLAN: 1. Continuation of Lopressor therapy. 2. Continuation of Norvasc therapy. 3. Continuation of Vasotec therapy. 4. Continuation of nitrates, but switching to Imdur therapy. 5. Initiation of Lipitor therapy. 6. Addition of aspirin therapy, unless it is contraindicated. 7. Patient can be discharged to the extended care facility from cardiovascular point of view and to follow up with his own cashier wrapper. Thank you for the kind referral. ELIZABETH ROJO M.D. [id number]
--- NOTE | 2016-08-06 17:05 | EKG ---
Test Reason : Blood Pressure : / mmHG Vent. Rate : 072 BPM Atrial Rate : 072 BPM P-R Int : 238 ms QRS Dur : 094 ms QT Int : 414 ms P-R-T Axes : 076 -17 085 degrees QTc Int : 453 ms SINUS RHYTHM WITH 1ST DEGREE A-V BLOCK MINIMAL VOLTAGE CRITERIA FOR LVH, MAY BE NORMAL VARIANT BORDERLINE ECG WHEN COMPARED WITH ECG OF 31-JUL-2016 14:21, NO SIGNIFICANT CHANGE WAS FOUND Confirmed by JEET PARISI MD ([id number]) on 08/06/2016 5:05:25 PM Referred By: Santosh Singh Confirmed By:JEET PARISI MD
[2016-08-07] MEDS ORDERED: ISOSORBIDE MONONITRATE 30 MG TAB.SR.24H (FP) PO SCH (10:00)
[2016-08-08 00:06] LABS: HEP B SURFACE AB Reactive (.)
--- NOTE | 2016-08-10 13:44 | OP ---
DATE OF OPERATION: 08/05/2016 SURGEON: Santosh Singh MD COMMISSIONING SPECIALIST: CHINO Acosta PROCEDURES: Repair of left brachial artery aneurysm with patch angioplasty. Ligation of arteriovenous fistula. Placement of Perma-Cath. PREOPERATIVE DIAGNOSES: Aneurysm of left arm arteriovenous fistula. End-stage renal disease on hemodialysis. POSTOPERATIVE DIAGNOSES: Aneurysm of left arm arteriovenous fistula. End-stage renal disease on hemodialysis. Brachial artery aneurysm. ANESTHESIA: Fractional. ANESTHESIOLOGIST: Gabriel Hanna MD OPERATIVE FINDINGS: There was aneurysmal degeneration of the left arm AV fistula proximal to the elbow. Exploration revealed a prior brachial artery bypass with Hammond-Arnoldo with the area of arteriovenous anastomosis aneurysmal and degenerated. OPERATIVE PROCEDURE: Following routine patient identification, side and site verification, intravenous sedation was established. The left arm was prepped with ChloraPrep. Xylocaine 1% was infiltrated over the area of distal AV fistula at the elbow distal to the area of aneurysm. The fistula was identified and was mobilized with sharp dissection. An attempt to encircle the fistula resulted in arterial bleeding. This was controlled with pressure. The wound was extended proximally and distally to gain control and careful dissection allowed identification with multiple vessels and grafts. The proximal feeding vessel was a PTFE graft extending down to the brachial artery which was encircled with a vessel loop. The outflow artery was also carefully dissected and encircled with a vessel loop. The arteriovenous fistula was controlled with a clamp and a distal vein branch was controlled with a vessel loop. Control of all of these vessels allowed for hemostasis. The fistula was then amputated off of the bypass graft and the area carefully inspected. The fistula was ligated with silk tie to control backbleeding. Inflow was adequate and pulsatile. The graft was filled with heparin solution and was occluded with a vascular clamp. The outflow brachial artery was patent. A number 3 Estela catheter was passed distally and withdrawn with no thrombus removed. The vessel was filled with heparin solution. Repair of the resulting arteriotomy was performed with a thin collagen-coated Dacron patch which was sutured in place to the graft and arterial wall with a running suture of 6-0 Prolene. Prior to completion of the suture line, the artery and graft were allowed to back-bleed and flush and the lumen was filled with heparin solution. Suture line was completed and all vessels were released. There was good flow through the artery with a strong Doppler signal distally. The wound was irrigated with saline and closed with interrupted suture of 3-0 Vicryl and skin heidi. A sterile dressing was applied. Consent was obtained from the patient's family member for placement of a Perma-Cath. The left neck and chest were then prepped with ChloraPrep and using real-time duplex imaging, the left internal jugular vein was identified. The vein was cannulated with a Micropuncture needle under duplex guidance and a fine wire was passed proximally. The needle was exchanged for a 5-Swiss catheter and then an angled-tip Glidewire was advanced into the right atrium and through the atrium into the inferior vena cava. The tract around the wire was dilated and the introducer was placed over the wire into the superior vena cava. Additional Xylocaine was then infiltrated on the chest wall and a stab wound made. A 32-cm Perma-Cath was passed from chest to neck with the aid of a tunneler. The Perma-Cath was then passed through the introducer and the tip positioned in the right atrium. The introducer was peeled away. Blood was aspirated easily from the venous limb, but the arterial limb met resistance. This flushed easily, but due to positioning of the catheter tip would not aspirate. Multiple attempts to reposition the catheter into a better site did not improve the situation, so the catheter was left in what appeared a usual tip position of the right atrium. Each lumen was flushed with heparin solution. The neck wound was closed with a subcuticular suture of 3-0 Vicryl. The catheter was sutured to the skin at the exit site with 3-0 nylon. Sterile dressings were applied. The patient was taken to the recovery room in stable condition. Marco A [id number]
== END 2016-08-06 13:20 ==
LOC: JASU-SURG 11:25 → J4W 21:13 → JASU-SURG 08-06 13:20
PROVIDERS: ATTEND Surgery
PROC: 037Y0ZZ Dilation of Upper Artery, Open Approach (ICD-10-PCS; 2016-08-05)
PROC: 06H033Z Insertion of Infusion Device into Inferior Vena Cava, Percutaneous Approach (ICD-10-PCS; 2016-08-05)
PROC: B549ZZA Ultrasonography of Inferior Vena Cava, Guidance (ICD-10-PCS; 2016-08-05)
PROC: 05LY0ZZ Occlusion of Upper Vein, Open Approach (ICD-10-PCS; principal; 2016-08-05 14:00)
PROC: 03LY0ZZ Occlusion of Upper Artery, Open Approach (ICD-10-PCS; 2016-08-05 14:00)
DX: T82.898A Other specified complication of vascular prosthetic devices, implants and grafts, initial encounter (principal); I12.0 Hypertensive chronic kidney disease with stage 5 chronic kidney disease or end stage renal disease; N18.6 End stage renal disease; Z99.2 Dependence on renal dialysis
CPT/HCPCS: 36415; 71010-TC; 76000-TC; 80048; 84132; 85027; 86704; 86706; 86708; 86850; 86900; 86901; 87340; 93005; 93010; 94760; J0885; J1644

== ENCOUNTER 2017-05-30 08:31 | Emergency (ER) | payer OTHER ==
--- NOTE | 2017-05-30 08:51 | PDOC ---
Attending Attestation - Resident Resident Name: Vince Hall - ED Attending Attestation I have performed the following: I have examined & evaluated the patient, The case was reviewed & discussed with the resident, I agree w/resident's findings & plan, Exceptions are as noted - HPI HPI: 05/30/17 08:50 56y M hx of htn, ESRD, schizophrenia presents with cardiac arreist. The pt is from [facility] and was found unresponsive by staff. - upon arrival, EMS noted asystole, started ACLS, got 5 cycles prior topresentation and was given bicarb, and mulitple epinephrines. There was intermittent improvement to PEA per EMS but never with return pof pulses. failed intubation in the field x 1, and Arik tube was placed. On arrival the pt was in asystole. acles continued and the patient was noted to be at cariac standstill via bedside echo. pt given calcium chloride, bicarb for preseumed hyperkalemia. monitor never improved from asystole. Pt was intubate dusing a 7.[address] Hall on the 1st attempt with good color change on capnometer. GENERAL: The patient is unresponsive HEAD: Normocephalic, atraumatic. EYES: pupils 4mm ON R eye, nonrespnsive ENT: ETT in place NECK: not stiff LUNGS: breath sounds symmetric, permcath in L chest HEART: no cardiac activiey ABD: Firm/distended EXTREMITIES: fistula in LUE NEUROLOGICAL: unresponsive PSYCH: unresponsive SKIN: Warm, Dry, - Physicial Exam PE: 06/01/17 08:10 see above - Medical Decision Making 05/30/17 10:10 Pt proundounced at 8:38am MD, Dr. Reed, family notified by Dr. Hall. Dr. Reed will fill out cert electronically.
[2017-05-30 08:55] VITALS: BP 0/0; BMI 23.5
--- NOTE | 2017-05-30 09:05 | PDOC ---
History of Present Illness - General History Source: EMS, Shelter Records - General Chief Complaint: Cardiac Arrest Stated Complaint: CARDIC ARREST Time Seen by Provider: 05/30/17 08:50 - History of Present Illness Initial Comments: 05/30/17 09:18 56M with Hx of ESRD, HTN and schizophrenia from [facility] brought in for cardiac arrest by EMS. Nurse at [facility] found the patient unresponsive (for unknown amount of time) and called EMS who found the patient asystolic. LMA was placed, while automated CPR machine was started with 4 round of epi during which the patient had PEA with brief pulse return before switching back to asystole. 05/30/17 10:06 05/30/17 10:11 (Vince Hall) Past History - Past Medical History Anemia: No Asthma: No Cancer: No Cardiac Disorders: No CVA: No COPD: No CHF: No Dementia: No Diabetes: Yes GI Disorders: No Disorders: Yes (ERSD) HTN: Yes Hypercholesterolemia: Yes Liver Disease: No Seizures: No - Suicide/Smoking/Psychosocial Hx Smoking History: Unknown if ever smoked Have you smoked in the past 12 months: No Information on smoking cessation initiated: No Hx Alcohol Use: No Drug/Substance Use Hx: No Substance Use Type: None - Past Medical History Allergies/Adverse Reactions: Allergies Allergy/AdvReac Type Severity Reaction Status Date / Time codeine Allergy Verified 05/30/17 08:48 Home Medications: Ambulatory Orders Acetaminophen 325 mg PO PRN PRN 07/30/16 Albuterol 0.083% Nebulizer Bertha [Ventolin 0.083% Nebulizer Soln -] 1 neb NEB Q6H PRN 07/30/16 Brimonidine Tartrate/Timolol [Combigan 0.2%-0.5% Eye Drops] 5 ml AU BID Enalapril Maleate 5 mg PO DAILY 07/30/16 Magnesium Hydroxide [Milk of Magnesia] 400 mg PO PRN PRN 07/30/16 Pantoprazole Sodium 40 mg PO DAILY 07/30/16 Sevelamer Carbonate [Renvela -] 1,600 mg PO CM 07/30/16 Amlodipine Besylate 10 mg PO DAILY 07/31/16 Docusate Sodium 100 mg PO BID 07/31/16 Dorzolamide HCl [Trusopt 2% -] 1 drop OD BID 07/31/16 Ferrous Sulfate [Feosol] 325 mg PO DAILY 07/31/16 Isosorbide Dinitrate [Isordil -] 10 mg PO DAILY 07/31/16 Latanoprost 0.005% Eye Drops [Xalatan 0.005% Eye Drops -] 1 drop OD DAILY Metoprolol Tartrate 50 mg PO BID 07/31/16 Pantoprazole Sodium 40 mg PO DAILY 07/31/16 Sodium Chloride [Tom-128] 2 drop OS Q6H 07/31/16 Cardiac Specific PMH - Complaint Specific PMHX Pacemaker: No Review of Systems - Review of Systems Able to Perform ROS?: No (cardiac arrest) *Physical Exam - Physical Exam General Appearance: Yes: Cachetic HEENT: positive: Other (glaucoma left eye. Right eye pupil 2mm non-reacting) Neck: positive: Rigidity Respiratory/Chest: positive: Other (no respiration) Cardiovascular: positive: Other (asystole) Vascular Pulses: Femoral (R): 0, Femoral (L): 0, Carotid (R): 0, Carotid (L): 0 - Vital Signs Last Vital Signs Temp Pulse Resp BP Pulse Ox 0/0 05/30/17 08:31 Medical Decision Making - Medical Decision Making 05/30/17 09:41 (Lulu Corrigan) in the ED patient was given calcium gluconate, 2 rounds of epinephrine and 1 sodium bicarbonate Patient intubated endotracheally. pronounced at 8.38am 05/30/17 10:12 (Vince Hall) *DC/Admit/Observation/Transfer Diagnosis at time of Disposition: , in hospital-based emergency department - Discharge Dispostion Disposition: - Referrals Referrals: Julio Reed [Primary Care Provider] - - Patient Instructions - Post Discharge Activity
== END 2017-05-30 12:00 | disposition expired ==
LOC: JER 08:31
PROC: 5A12012 Performance of Cardiac Output, Single, Manual (ICD-10-PCS; principal; 2017-05-30)
PROC: 0BH17EZ Insertion of Endotracheal Airway into Trachea, Via Natural or Artificial Opening (ICD-10-PCS; 2017-05-30)
DX: I46.9 Cardiac arrest, cause unspecified (principal); I12.0 Hypertensive chronic kidney disease with stage 5 chronic kidney disease or end stage renal disease; N18.6 End stage renal disease; F20.9 Schizophrenia, unspecified
CPT/HCPCS: 31500; 82962; 92950; 99284-25